=== PATIENT | female | born 1955 | race Caucasian/White ===

== ENCOUNTER → 2019-06-10 | Outpatient (REF) | payer OTHER ==
[~2019-06-10] MED LIST: BUPR300T92 PO; FLINCHW5 PO; FLUO40CA PO; LEVO175T2 PO; OMEP1CAP73 PO; PROBCAP4 PO; PROG1CAP8 PO; VYVA70CA3 PO; estrogen cream TOP
== END ==
LOC: M LAB REF 16:30
PROVIDERS: ATTEND Physician Assistant
DX: J11.1 Influenza due to unidentified influenza virus with other respiratory manifestations (principal)